=== PATIENT | female | born 1965 | race Caucasian/White ===

== ENCOUNTER → 2016-10-28 | Outpatient (CLI) | payer BC ==
[~2016-10-28] MED LIST: HYDR-229 PO
--- NOTE | 2016-10-28 19:35 | Diagnostic Imaging Report ---
Transabdominal and transvaginal pelvic ultrasound. INDICATION: Pelvic pain. FINDINGS: The uterus is 7.8 x 5 x 4.5 cm in size. It is retroflexed. The myometrium is slightly heterogeneous. There is a myometrial fibroid along the right anterior aspect of the uterine body. It measures 1.4 x 1.1 x 1.1 cm. The endometrial stripe is 0.4 cm in thickness. The ovaries are not seen, possibly atrophic or obscured by bowel gas. IMPRESSION: Heterogeneous myometrium with a 1.4 cm anterior myometrial fibroid eccentric to the right side. Dictated by: Dictated on workstation # [id number]
== END ==
LOC: RAD 12:52
PROVIDERS: ATTEND Nurse Practitioner Family
DX: D25.9 Leiomyoma of uterus, unspecified (principal)
CPT/HCPCS: 76830; 76856

== ENCOUNTER 2016-10-31 16:24 | Emergency (ER) | payer BC ==
[~2016-10-31] VITALS: Ht 185.4 cm; Wt 72.6 kg
[2016-10-31 16:58] LABS: BILIRUBIN,URINE NEGATIVE (NEGATIVE); KETONES,URINE NEGATIVE (NEGATIVE); LEUKOCYTE ESTERASE ,URINE NEGATIVE (NEGATIVE); NITRITE,URINE NEGATIVE (NEGATIVE); PH,URINE 6.5 (5-9); PROTEIN,URINE NEGATIVE (NEGATIVE); UROBILINOGEN,URINE NORMAL (NORMAL)
[2016-10-31 17:10] LABS: SQUAMOUS EPITHELIAL CELL,UR 0-2 /HPF
[2016-10-31 17:20] LABS: BASOPHILS % (AUTO) 1 % (0-10); EOSINOPHILS # (AUTO) 0.1 10^3/uL (0.0-0.3); EOSINOPHILS % (AUTO) 2 % (0-10); LYMPHOCYTES # (AUTO) 2.4 X 10^3 (1.0-4.0); LYMPHOCYTES % (AUTO) 38 % (12-44); MEAN CORPUSCULAR HEMOGLOBIN 30 PG (25-34); MEAN CORPUSCULAR HGB CONC 33 G/DL (32-36); MEAN CORPUSCULAR VOLUME 90 FL (80-99); MEAN PLATELET VOLUME 11.4 FL (7.4-10.4); MONOCYTES # (AUTO) 0.5 X 10^3 (0.0-1.0); MONOCYTES % (AUTO) 8 % (0-12); NEUTROPHILS # (AUTO) 3.3 X 10^3 (1.8-7.8); NEUTROPHILS % (AUTO) 52 % (42-75); PLATELET COUNT 198 10^3/uL (130-400); RED BLOOD COUNT 4.55 10^6/uL (4.35-5.85); RED CELL DISTRIBUTION WIDTH 12.6 % (10.0-14.5); WHITE BLOOD COUNT 6.4 10^3/uL (4.3-11.0)
[2016-10-31 17:38] LABS: ALANINE AMINOTRANSFERASE 16 U/L (0-55); ANION GAP 10 MMOL/L (5-14); ASPARTATE AMINO TRANSFERASE 19 U/L (5-34); BILIRUBIN,TOTAL 0.6 MG/DL (0.1-1.0); BLOOD UREA NITROGEN 10 MG/DL (7-18); BUN/CREATININE RATIO 14; CALCIUM 9.1 MG/DL (8.5-10.1); CARBON DIOXIDE 21 MMOL/L (21-32); CHLORIDE 105 MMOL/L (98-107); CREATININE SERUM 0.71 MG/DL (0.60-1.30); GFR ESTIMATED > 60; GLUCOSE 82 MG/DL (70-105); POTASSIUM 3.7 MMOL/L (3.6-5.0); SODIUM 136 MMOL/L (135-145); hs C REACTIVE PROTEIN 0.09 MG/DL (0.00-0.50)
--- NOTE | 2016-10-31 17:42 | ED GU-Female ---
General Chief Complaint: Abdominal/GI Problems Stated Complaint: ABD/PELVIC PAIN Nursing Triage Note: PT STATES LOWER ABD/PELVIC PAIN FOR ALMOST 3 WEEKS. STATES SHE HAS BEEN SEEN AT DR MAGUIRE OFFICE FOR THIS PAIN, HAD AN US DONE AND IS UNSURE OF WHAT IS CAUSING HER PAIN. Nursing Sepsis Screen: No Definite Risk Source: patient Exam Limitations: no limitations History of Present Illness Time seen by provider: 17:14 Initial Comments 51 yo female patient presents to the ED for c/o lower abdominal pain/pelvic pain for approximately 3 weeks. Patient was seen by Dr. Vega's office with an ultrasound performed. States ultrasound was negative. Patient states pelvic exam and cultures were done in Dr. Vega's office and were negative. Timing/Duration: intermittent, other (3 wks) Severity/Quality: aching, cramping Location: RLQ, LLQ, suprapubic Radiation: back Activities at Onset: none Prior Genitourinary Problems: none Allergies and Home Medications Allergies Coded Allergies: No Known Drug Allergies (Unverified , 12/04/10) Home Medications Cyclobenzaprine HCl 10 Mg Tablet, 10 MG PO Q8H PRN for SPASMS, #14 Ref 0 Prescribed by: YAKELIN PACK on 10/31/16 190 Hydrocodone Bit/Acetaminophen 1 Each Tablet, 1-2 EACH PO Q6HR PRN, #30 Ref 0 Prescribed by: SHELBY OSHEA on 12/04/10 0704 Prednisone 20 Mg Tab, 40 MG PO DAILY, #10 Ref 0 Prescribed by: YAKELIN PACK on 10/31/16 190 Tramadol HCl 50 Mg Tablet, 50 MG PO Q4H PRN for pain, #14 Ref 0 Prescribed by: YAKELIN PACK on 10/31/161899 Constitutional: No chills, No fever, No malaise Respiratory: No cough, No short of breath Cardiovascular: No chest pain, No palpitations, No syncope Gastrointestinal: see HPI, abdominal pain, No constipation, No diarrhea, No melena, No nausea, No vomiting Genitourinary: see HPI, denies burning, denies discharge, denies dysuria, denies frequency, denies flank pain, denies hematuria, pain Musculoskeletal: back pain Skin: no symptoms reported Psychiatric/Neurological: Denies Numbness, Denies Paresthesia, Denies Tingling , Denies Weakness All Other Systemes Reviewed Negative Unless Noted: Yes (Negative excepted noted.) Past Rourdda-Urnzsc-Gedx[facility] Hx Patient Social History Alcohol Use: Denies Use Recreational Drug Use: No Smoking Status: Never a Smoker Recent Foreign Travel: No Contact w/Someone Who Travel: No Recent Infectious Disease Expo: No Recent Hopitalizations: No Seasonal Allergies Seasonal Allergies: No Surgeries HX Surgeries: Yes Surgeries: Section Respiratory Hx Respiratory Disorders: No Cardiovascular Hx Cardiac Disorders: No Neurological Hx Neurological Disorders: No Genitourinary Hx Genitourinary Disorders: No Gastrointestinal Hx Gastrointestinal Disorders: No Musculoskeletal Hx Musculoskeletal Disorders: No Reviewed Nursing Assessment Reviewed/Agree w Nursing PMH: Yes Family Medical History Significant Family History: No Pertinent Family Hx Physical Exam Vital Signs Vital Sign - Last 12Hours 10/31/16 10/31/16 16:54 19:08 Temp 98.4 Pulse 76 Resp 18 B/P (MAP) 145/91 Pulse Ox 99 Capillary Refill : Less Than 3 Seconds General Appearance: WD/WN, no apparent distress Cardiovascular: regular rate, rhythm, no murmur Respiratory: lungs clear, normal breath sounds, no respiratory distress Gastrointestinal: normal bowel sounds, soft, no organomegaly Back: normal inspection, no CVA tenderness, no vertebral tenderness, other ( bilateral paraspinous muscles of the low back is ttp) Extremities: no pedal edema, normal capillary refill Neurologic/Psychiatric: alert, normal mood/affect, oriented x 3 Skin: normal color, warm/dry Progress/Results/Core Measures Results/Orders Lab Results Laboratory Tests Test 10/31/16 16:50 10/31/16 17:13 Range/Units Urine Color YELLOW Urine Clarity CLEAR Urine pH 6.5 5-9 Urine Specific Carman 1.005 L 1.016-1.022 Urine Protein NEGATIVE NEGATIVE Urine Glucose (UA) NEGATIVE NEGATIVE Urine Ketones NEGATIVE NEGATIVE Urine Nitrite NEGATIVE NEGATIVE Urine Bilirubin NEGATIVE NEGATIVE Urine Urobilinogen NORMAL NORMAL MG/DL Urine Leukocyte Esterase NEGATIVE NEGATIVE Urine RBC (Auto) NEGATIVE NEGATIVE Urine RBC NONE /HPF Urine WBC NONE /HPF Urine Squamous Epithelial Cells 0-2 /HPF Urine Crystals NONE /LPF Urine Bacteria NEGATIVE /HPF Urine Casts NONE /LPF Urine Mucus NEGATIVE /LPF Urine Culture Indicated NO White Blood Count 6.4 4.3-11.0 10^3/uL Red Blood Count 4.55 4.35-5.85 10^6/uL Hemoglobin 13.5 11.5-16.0 G/DL Hematocrit 41 35-52 % Mean Corpuscular Volume 90 80-99 FL Mean Corpuscular Hemoglobin 30 25-34 PG Mean Corpuscular Hemoglobin Concent 33 32-36 G/DL Red Cell Distribution Width 12.6 10.0-14.5 % Platelet Count 198 130-400 10^3/uL Mean Platelet Volume 11.4 H 7.4-10.4 FL Neutrophils (%) (Auto) 52 42-75 % Lymphocytes (%) (Auto) 38 12-44 % Monocytes (%) (Auto) 8 0-12 % Eosinophils (%) (Auto) 2 0-10 % Basophils (%) (Auto) 1 0-10 % Neutrophils # (Auto) 3.3 1.8-7.8 X 10^3 Lymphocytes # (Auto) 2.4 1.0-4.0 X 10^3 Monocytes # (Auto) 0.5 0.0-1.0 X 10^3 Eosinophils # (Auto) 0.1 0.0-0.3 10^3/uL Basophils # (Auto) 0.0 0.0-0.1 10^3/uL Sodium Level 136 135-145 MMOL/L Potassium Level 3.7 3.6-5.0 MMOL/L Chloride Level 105 98-107 MMOL/L Carbon Dioxide Level 21 21-32 MMOL/L Anion Gap 10 5-14 MMOL/L Blood Urea Nitrogen 10 7-18 MG/DL Creatinine 0.71 0.60-1.30 MG/DL Estimat Glomerular Filtration Rate > 60 BUN/Creatinine Ratio 14 Glucose Level 82 70-105 MG/DL Calcium Level 9.1 8.5-10.1 MG/DL Total Bilirubin 0.6 0.1-1.0 MG/DL Aspartate Amino Transf (AST/SGOT) 19 5-34 U/L Alanine Aminotransferase (ALT/SGPT) 16 0-55 U/L Alkaline Phosphatase 68 40-136 U/L C-Reactive Protein High Sensitivity 0.09 0.00-0.50 MG/DL Total Protein 7.0 6.4-8.2 GM/DL Albumin 4.0 3.2-4.5 GM/DL My Orders Orders - YAKELIN PACK Ua Culture If Indicated (10/31/16 16:42) Saline Lock/Iv-Start (10/31/16 16:59) Cbc With Automated Diff (10/31/16 16:59) Comprehensive Metabolic Panel (10/31/16 16:59) Hs C Reactive Protein (10/31/16 16:59) Ct Abdomen/Pelvis W Wo (10/31/16 17:30) Iohexol Injection (Omnipaque 350 Mg/Ml 1 (10/31/16 17:45) Ns (Ivpb) (Sodium Chloride 0.9% Ivpb Bag (10/31/16 17:45) Rx-Tramadol Hcl (Rx-Ultram) (10/31/16 19:04) Medications Given in ED Current Medications Medications Dose Ordered Sig/Suzanna Route Start Time Stop Time Status Last Admin Dose Admin Iohexol 100 ml ONCE ONCE IV 10/31/16 17:45 10/31/16 19:10 DC 10/31/16 17:43 100 ML Sodium Chloride 100 ml ONCE ONCE IV 10/31/16 17:45 10/31/16 19:10 DC 10/31/16 17:43 80 ML Vital Signs/I&O Vital Sign - Last 12Hours 10/31/16 10/31/16 16:54 19:08 Temp 98.4 98.4 Pulse 76 76 Resp 18 18 B/P (MAP) 145/91 Pulse Ox 99 Blood Pressure Mean: 109 Diagnostic Imaging Diagonstic Imaging: CT Plain Films/CT/US/NM/MRI: abdomen, pelvis Comments FINDINGS: The visualized lung bases are clear. The liver, spleen, adrenal glands and pancreas are unremarkable. The bilateral kidneys are unremarkable. Minimal bilateral hydroureter, though no obstructing lesion is identified. No aneurysmal dilatation of abdominal aorta. The urinary bladder is unremarkable. The uterus is again noted to be heterogeneous with a central rounded region noted, which does not appear significantly changed since 2010. The adnexal regions are unremarkable. The appendix is unremarkable. No evidence of bowel obstruction or pneumatosis. No significant adenopathy, free air or free air within the abdomen or pelvis. No acute osseous abnormality. IMPRESSION: 1. Mild bilateral hydroureter without hydronephrosis. There is, however, no obstructing mass or calculus identified. 2. Similar heterogeneous appearance of the uterus with associated round hypodensity, likely related to a fibroid. Not significantly changed since 2010. 3. Additional findings as above. Dictated on workstation # [id number] Reviewed: Reviewed by Me (radiology report reviewed by me) Departure Communication Progress Notes All laboratory and diagnostic findings discussed with the patient. Patient now states she has an appointment with Fransisco acosta APRN on Tuesday for further evaluation. Plan for discharge to home. Patient instructed to follow-up with Dr. Vega's office for recheck and to proceed with appointment at Fransisco acosta's office on Tuesday. Impression Impression: Primary Impression: Abdominal pain Qualified Codes: R10.30 - Lower abdominal pain, unspecified Additional Impressions: Uterine fibroid Qualified Codes: D25.9 - Leiomyoma of uterus, unspecified Strain of muscle, fascia and tendon of lower back, initial encounter Disposition: HOME, SELF-CARE Condition: Improved Departure-Patient Inst. Decision time for Depature: 18:45 Referrals: FERN VEGA DO (PCP/Family) Primary Care Physician FRANSISCO ACOSTA Patient Instructions: Uterine Fibroids (DC), Acute Abdomen (Belly Pain), Adult (DC) Add. Discharge Instructions: All discharge instructions reviewed with patient and/or family. Voiced understanding. Tylenol extra strength [id number] as directed for pain. Ibuprofen 800 mg by mouth every 8 hours as needed for pain. Follow-up with Dr. Vega as an outpatient for recheck. Follow-up with Fransisco Acosta APRN as an outpatient Tuesday as previously scheduled. Call for appointment time Tuesday. Return to the emergency department for worsened pain, fever, difficulty with urination, inability to urinate, abdominal swelling, or any other concerns. Scripts Cyclobenzaprine HCl (Cyclobenzaprine HCl) 10 Mg Tablet 10 MG PO Q8H Y for SPASMS, #14 TAB 0 Refills Prov: YAKELIN PACK 10/31/16 Prednisone (Prednisone) 20 Mg Tab 40 MG PO DAILY, #10 TAB 0 Refills Prov: YAKELIN PACK 10/31/16 Tramadol HCl (Tramadol HCl) 50 Mg Tablet 50 MG PO Q4H Y for pain, #14 TAB 0 Refills Prov: YAKELIN PACK 10/31/16 Copy Copies To 1: FERN VEGA DO Copies To 2: FRANSISCO ACOSTA GRETCHEN L PA Oct 31, 2016 17:42
[2016-10-31] MEDS ORDERED: IOHEXOL 350 MG/ML 100 ML (OMNIPAQUE 350) VIAL IV ONE (17:45)
[2016-10-31] MEDS ORDERED: NS 100 ML (IVPB) BAG IV ONE (17:45)
--- NOTE | 2016-10-31 18:30 | Diagnostic Imaging Report ---
PROCEDURE: CT abdomen and pelvis with and without contrast. TECHNIQUE: Precontrast acquisitions were acquired through the abdomen and pelvis. Multiple contiguous axial images were obtained through the abdomen and pelvis after the administration of intravenous contrast. INDICATION: Pain. COMPARISON: December 04, 2010. FINDINGS: The visualized lung bases are clear. The liver, spleen, adrenal glands and pancreas are unremarkable. The bilateral kidneys are unremarkable. Minimal bilateral hydroureter, though no obstructing lesion is identified. No aneurysmal dilatation of abdominal aorta. The urinary bladder is unremarkable. The uterus is again noted to be heterogeneous with a central rounded region noted, which does not appear significantly changed since 2010. The adnexal regions are unremarkable. The appendix is unremarkable. No evidence of bowel obstruction or pneumatosis. No significant adenopathy, free air or free air within the abdomen or pelvis. No acute osseous abnormality. IMPRESSION: 1. Mild bilateral hydroureter without hydronephrosis. There is, however, no obstructing mass or calculus identified. 2. Similar heterogeneous appearance of the uterus with associated round hypodensity, likely related to a fibroid. Not significantly changed since 2010. 3. Additional findings as above. Dictated by: Dictated on workstation # [id number]
[2016-10-31] MEDS ORDERED: TRAM50TA2 PO (19:00)
[2016-10-31] MEDS ORDERED: CYCL10TA9 PO (19:00)
[2016-10-31] MEDS ORDERED: PRD20T PO (19:00)
[2016-10-31] MEDS ORDERED: RX-TRAMADOL 50 MG (ULTRAM) TAB PPK#4 PO STA (19:04)
[2016-10-31 19:08] VITALS: BP 145/91
--- OUTSIDE RECORDS SUMMARY | 2016-11-02 12:09 | XMS REPORT | Continuity of Care Document ---
Author Author [facility] Organization [facility] Address Unknown Phone Unavailable Allergies Active Description Code Type Severity Reaction Onset Reported/Identified Relationship to Patient Clinical Status Yes No Known Drug Allergies [id number] Drug Allergy Unknown N/ A 12/04/2010 Medications Problems Date Dx Coded Attending Type Code Diagnosis Diagnosed By 03/27/2014 Ot 719.41 03/27/2014 Ot 782.3 03/27/2014 FRANSISCO FLORES Ot V76.12 04/15/2014 DYLLAN NICOLE DO Ot V76.12 03/28/2015 DYLLAN NICLOE DO Ot Z12.31 10/22/2015 Ot 719.41 JOINT PAIN-SHLDER 10/22/2015 Ot 782.3 EDEMA 10/22/2015 FRANSISCO FLORESP Ot V76.12 OTH SCREEN MAMMO-MALIGN NEOPLASM OF [place] 10/22/2015 DYLLAN NICOLE DO Ot V76.12 OTH SCREEN MAMMO-MALIGN NEOPLASM OF [place] 10/22/2015 DYLLAN NICOLE DO Ot Z12.31 ENCNTR SCREEN MAMMOGRAM FOR MALIGNANT NE 10/23/2015 LEENA ANDERSON MILITARY COOK Ot R76.11 NONSPECIFIC REACTION TO SKIN TEST W/O AC 03/15/2016 Ot 719.41 JOINT PAIN-SHLDER 03/15/2016 Ot 782.3 EDEMA 03/15/2016 FRANSISCO FLORES CRUSHER FEEDER Ot V76.12 OTH SCREEN MAMMO-MALIGN NEOPLASM OF [place] 03/15/2016 DYLLAN NICOLE DO Ot V76.12 OTH SCREEN MAMMO-MALIGN NEOPLASM OF [place] 03/15/2016 DYLLAN NICOLE DO Ot Z12.31 ENCNTR SCREEN MAMMOGRAM FOR MALIGNANT NE 03/15/2016 LEENA ANDERSON MILITARY COOK Ot R76.11 NONSPECIFIC REACTION TO SKIN TEST W/O AC 03/26/2016 DYLLAN NICOLE DO Ot Z12.31 ENCNTR SCREEN MAMMOGRAM FOR MALIGNANT NE 10/25/2016 Ot 719.41 JOINT PAIN-SHLDER 10/25/2016 Ot 782.3 EDEMA 10/25/2016 FRANSISCO FLORES Ot V76.12 OTH SCREEN MAMMO-MALIGN NEOPLASM OF [place] 10/25/2016 NICOLE DO, DYLLAN C Ot V76.12 OTH SCREEN MAMMO-MALIGN NEOPLASM OF [place] 10/25/2016 NICOLE DO, DYLLAN C Ot Z12.31 ENCNTR SCREEN MAMMOGRAM FOR MALIGNANT NE 10/25/2016 LEENA ANDERSON APRN Ot R76.11 NONSPECIFIC REACTION TO SKIN TEST W/O AC 10/25/2016 NICOLE DO, DYLLAN C Ot Z12.31 ENCNTR SCREEN MAMMOGRAM FOR MALIGNANT NE 10/25/2016 Ot 719.41 JOINT PAIN-SHLDER 10/25/2016 Ot 782.3 EDEMA 10/25/2016 FRANSISCO FLORES CRUSHER FEEDER Ot V76.12 OTH SCREEN MAMMO-MALIGN NEOPLASM OF [place] 10/25/2016 NICOLE DO, DYLLAN C Ot V76.12 OTH SCREEN MAMMO-MALIGN NEOPLASM OF [place] 10/25/2016 NICOLE DO, DYLLAN C Ot Z12.31 ENCNTR SCREEN MAMMOGRAM FOR MALIGNANT NE 10/25/2016 LEENA ANDERSON MILITARY COOK Ot R76.11 NONSPECIFIC REACTION TO SKIN TEST W/O AC 10/25/2016 NICOLE DO, DYLLAN C Ot Z12.31 ENCNTR SCREEN MAMMOGRAM FOR MALIGNANT NE Procedures Results Encounters ACCT No. Visit Date/Time Discharge Status Pt. Type Provider Facility Loc./Unit Complaint [id number] 03/14/2015 14:11:00 2014 23:59:59 CLS Outpatient DYLLAN NICOLE DO C [facility] RAD SCREENING [id number] 03/28/2014 13:35:00 2013 23:59:59 CLS Outpatient DYLLAN NICOLE DO [facility] RAD SCREENING [id number] 02/23/2013 13:33:00 2012 23:59:59 CLS Outpatient FRANSISCO FLORES [facility] RAD SCREENING [id number] 10/28/2016 12:52:00 ACT Outpatient EDILIA MORRIS [facility] RAD PELVIC PAIN [id number] 03/15/2016 14:54:00 ACT Outpatient DYLLAN NICOLE DO [facility] RAD SCREENING [id number] 10/22/2015 13:51:00 ACT Outpatient LEENA ANDERSON APRN [facility] RAD POSITIVE TB SKIN TEST [id number] 03/27/2014 10:08:00 Document Registration [id number] 03/27/2014 10:08:00 Document Registration [id number] 02/11/2012 14:16:00 Document Registration
== END 2016-10-31 19:09 | disposition home or self-care (01) ==
LOC: EDUNIT# 16:24 → ER 16:26
DX: X58.XXXA Exposure to other specified factors, initial encounter; S39.012A Strain of muscle, fascia and tendon of lower back, initial encounter; D25.9 Leiomyoma of uterus, unspecified; Z87.59 Personal history of other complications of pregnancy, childbirth and the puerperium
CPT/HCPCS: 36415; 74178; 80053; 81000; 85025; 86141

== ENCOUNTER → 2017-03-21 | Outpatient (CLI) | payer BC ==
[~2017-03-21] MED LIST changes: +CYCL10TA9 PO; +PRD20T PO; +TRAM50TA2 PO
--- NOTE | 2017-03-22 21:47 | Diagnostic Imaging Report ---
Bilateral screening mammogram 2D views with tomosynthesis The current study was also evaluated with a Computer Aided Detection (CAD) system. Indication: Screening. No current complaints stated on the questionnaire. COMPARISON: 03/15/2016 FINDINGS: The breasts are composed of heterogeneously dense parenchyma which may decrease mammographic sensitivity. There is no mass, architectural distortion or suspicious cluster of calcification. Allowing for technique and positional differences, no suspicious change is seen. IMPRESSION: Dense breasts with no definite change. ACR BI-RADS Category 2: Benign findings. Result letter will be mailed to the patient. Note: At least 10% of breast cancer is not imaged by mammography. Dictated by: Dictated on workstation # [id number]
== END ==
LOC: RAD 10:03
PROVIDERS: ATTEND Obstetrics & Gynecology
DX: Z12.31 Encounter for screening mammogram for malignant neoplasm of breast (principal)
CPT/HCPCS: 77067

== ENCOUNTER → 2018-03-23 | Outpatient (CLI) | payer BC ==
--- NOTE | 2018-03-23 12:21 | Diagnostic Imaging Report ---
Indication: Routine screening. Comparison is made to prior mammogram from 03/21/2017 and 03/15/2016. 2-D and 3-D bilateral screening mammography was performed with CAD. Both breasts remain heterogeneously dense, limiting the sensitivity of mammography. The parenchymal pattern is stable. No mass or malignant-appearing microcalcifications are seen. There are benign calcifications. Axillae are unremarkable. Impression: BI-RADS category 2. No mammographic features suspicious for malignancy are identified. ACR BI-RADS Category 2: Benign findings. Result letter will be mailed to the patient. Note: At least 10% of breast cancer is not imaged by mammography. Dictated by: Dictated on workstation # [id number]
== END ==
LOC: RAD 10:04
PROVIDERS: ATTEND Obstetrics & Gynecology
DX: Z12.31 Encounter for screening mammogram for malignant neoplasm of breast (principal)
CPT/HCPCS: 77067

== ENCOUNTER → 2020-03-18 | Outpatient (CLI) | payer BC, OTHER ==
[~2020-03-18] MED LIST changes: -TRAM50TA2 PO; +TRM50T PO
--- NOTE | 2020-03-18 14:30 | Diagnostic Imaging Report ---
INDICATION: Screening. TECHNIQUE: The current study was also evaluated with a Computer Aided Detection (CAD) system. 3-D Tomographic imaging was also performed. COMPARISON: 03/23/2018, 03/21/2017, and 03/15/2016. FINDINGS: The fibroglandular tissue is heterogeneously dense bilaterally. There is no dominant mass, spiculated lesion, or suspicious calcification identified. Benign-type calcification in the left breast. The skin, nipples, and axillae are unremarkable. IMPRESSION: Benign findings as above. ACR BI-RADS Category 2: Benign findings. Result letter will be mailed to the patient. Note: At least 10% of breast cancer is not imaged by mammography. Dictated by: Dictated on workstation # [id number]
== END ==
LOC: RAD 10:46
PROVIDERS: ATTEND Obstetrics & Gynecology
DX: Z12.31 Encounter for screening mammogram for malignant neoplasm of breast (principal); R92.1 Mammographic calcification found on diagnostic imaging of breast
CPT/HCPCS: 77063; 77067

== ENCOUNTER 2021-01-25 08:25 | Emergency (ER) | payer OTHER ==
[~2021-01-25] VITALS: Ht 170.1 cm; Wt 64.8 kg
[2021-01-25] MEDS ORDERED: fentaNYL INJ 100 MCG/2 ML AMP ONE (08:38)
[2021-01-25 08:45] LABS: BASOPHILS # (AUTO) 0.1 10^3/uL (0.0-0.1); BASOPHILS % (AUTO) 1 % (0-10); EOSINOPHILS # (AUTO) 0.1 10^3/uL (0.0-0.3); EOSINOPHILS % (AUTO) 2 % (0-10); HEMATOCRIT 42 % (35-52); HEMOGLOBIN 13.7 g/dL (11.5-16.0); LYMPHOCYTES # (AUTO) 3.1 10^3/uL (1.0-4.0); LYMPHOCYTES % (AUTO) 46 % (12-44); MEAN CORPUSCULAR HEMOGLOBIN 31 pg (25-34); MEAN CORPUSCULAR HGB CONC 33 g/dL (32-36); MEAN CORPUSCULAR VOLUME 93 fL (80-99); MEAN PLATELET VOLUME 11.4 fL (9.0-12.2); MONOCYTES # (AUTO) 0.5 10^3/uL (0.0-1.0); MONOCYTES % (AUTO) 8 % (0-12); NEUTROPHILS # (AUTO) 2.9 10^3/uL (1.8-7.8); NEUTROPHILS % (AUTO) 42 % (42-75); PLATELET COUNT 231 10^3/uL (130-400); WHITE BLOOD COUNT 6.8 10^3/uL (4.3-11.0)
[2021-01-25] MEDS ORDERED: fentaNYL INJ 100 MCG/2 ML AMP IVP ONE ×2 (08:45→11:00)
--- NOTE | 2021-01-25 08:45 | ED Fall/Injury ---
General Chief Complaint: Upper Extremity Stated Complaint: LEFT ARM BROKEN Source: patient Exam Limitations: no limitations History of Present Illness Date Seen by Provider: Jan 25, 2021 Time Seen by Provider: 08:28 Initial Comments Patient reports the ER by private conveyance from [facility] [place] [place] where she was working and states she was pushing a wheelchair and slipped on some water. She landed on outstretched left arm on her left side and when she felt a snap in her left wrist she retched backwards striking the back of her head against the floor. She is also having some pain in her low back/right sacral area. She says she has broke her left wrist in the past. She does not have any medical allergies and follows with Dr. Vega. She denies being on blood thinners. She is very anxious and difficult to get a history from. She does not however have a history of surgery to her left wrist. Allergies and Home Medications Allergies Coded Allergies: No Known Drug Allergies (Unverified , 12/04/10) Patient Home Medication List Home Medication List Reviewed: Yes Cephalexin (Cephalexin) 500 Mg Tablet, 500 MG PO TID Prescribed by: BRUNO DESAI on 01/25/21 111 Cyclobenzaprine HCl (Cyclobenzaprine HCl) 10 Mg Tablet, 10 MG PO Q8H PRN for SPASMS Prescribed by: YAKELIN PACK on 10/31/161899 Hydrocodone Bit/Acetaminophen (Lortab 10-500 Tablet) 1 Each Tablet, 1-2 EACH PO Q6HR PRN Prescribed by: SHELBY OSHEA on 12/04/10 0704 Hydrocodone/Acetaminophen (Hydrocodone-Acetamin 5-325 mg) 1 Each Tablet, 1-2 TAB PO Q6H PRN for PAIN-MODERATE (5-7) Prescribed by: BRUNO DESAI on 01/25/21 111 Prednisone (Prednisone) 20 Mg Tab, 40 MG PO DAILY Prescribed by: YAKELIN PACK on 10/31/161899 Tramadol HCl (Tramadol HCl) 50 Mg Tablet, 50 MG PO Q4H PRN for pain Prescribed by: YAKELIN PACK on 10/31/161899 Review of Systems Review of Systems Constitutional: No chills, No diaphoresis Eyes: Denies Blindness, Denies Drainage Ears, Nose, Mouth, Throat: denies ear pain, denies ear discharge Respiratory: No cough, No phlegm Cardiovascular: No chest pain, No palpitations Gastrointestinal: No abdominal pain, No nausea Genitourinary: No discharge, No dysuria Musculoskeletal: see HPI, back pain, joint pain All Other Systems Reviewed Negative Unless Noted: Yes Past Wofkqdt-Stcsdj-Ocdrsn Hx Patient Social History Tobacco Use?: No Use of E-Cig and/or Vaping dev: No Substance use?: No Seasonal Allergies Seasonal Allergies: No Past Medical History Surgeries: No Section Respiratory: No Cardiac: No Neurological: No Genitourinary: No Gastrointestinal: No Musculoskeletal: No Endocrine: No HEENT: No Cancer: No Psychosocial: No Integumentary: No Blood Disorders: No Family Medical History No Pertinent Family Hx Physical Exam Vital Signs Vital Signs - First Documented 01/25/21 08:34 Temp 36.1 Pulse 107 Resp 18 B/P (MAP) 201/102 (135) Pulse Ox 100 Capillary Refill : Height, Weight, BMI Height: 6'1.00" Weight: 160lbs. oz. 72.578916hw; BMI Method:Stated General Appearance: WD/WN, no apparent distress HEENT: normal ENT inspection, pharynx normal Neck: full range of motion, normal inspection Cardiovascular: normal peripheral pulses, regular rate, rhythm Respiratory: lungs clear, normal breath sounds, no respiratory distress, no accessory muscle use Peripheral Pulses: 2+ Radial Pulses (R), 2+ Radial Pulses (L) Gastrointestinal: normal bowel sounds, non tender, soft, no organomegaly Back: normal inspection, vertebral tenderness (Lumbar midline and right paraspinous muscle tenderness over the sacroiliac joint tender to palpation. No deformity.) Extremities: normal capillary refill, swelling (Left wrist with deformity and puncture wound hemostatic) Neurologic/Psychiatric: alert, oriented x 3, other (Very anxious, hyperventilating) Skin: normal color, warm/dry [place] Coma Score Best Eye Response: (4) Open Spontaneously Best Verbal Response: (5) Oriented Best Motor Response: (6) Obeys Commands [place] Total: 15 Procedures/Interventions Splinting and Joint Reduction : Location: Left wrist Pre-Proc Neuro Vasc Exam: normal Post-Proc Neuro Vasc Exam: unchanged from pre-exam Manny wrap: Yes Arm Sling: Large Hand-Made Type: fiberglass (Short arm splint) Splint Application: Short Arm Progress/Results/Core Measures Results/Orders Lab Results Laboratory Tests Test 01/25/21 08:36 Range/Units White Blood Count 6.8 4.3-11.0 10^3/uL Red Blood Count 4.49 3.80-5.11 10^6/uL Hemoglobin 13.7 11.5-16.0 g/dL Hematocrit 42 35-52 % Mean Corpuscular Volume 93 80-99 fL Mean Corpuscular Hemoglobin 31 25-34 pg Mean Corpuscular Hemoglobin Concent 33 32-36 g/dL Red Cell Distribution Width 12.7 10.0-14.5 % Platelet Count 231 130-400 10^3/uL Mean Platelet Volume 11.4 9.0-12.2 fL Immature Granulocyte % (Auto) 2 % Neutrophils (%) (Auto) 42 42-75 % Lymphocytes (%) (Auto) 46 H 12-44 % Monocytes (%) (Auto) 8 0-12 % Eosinophils (%) (Auto) 2 0-10 % Basophils (%) (Auto) 1 0-10 % Neutrophils # (Auto) 2.9 1.8-7.8 10^3/uL Lymphocytes # (Auto) 3.1 1.0-4.0 10^3/uL Monocytes # (Auto) 0.5 0.0-1.0 10^3/uL Eosinophils # (Auto) 0.1 0.0-0.3 10^3/uL Basophils # (Auto) 0.1 0.0-0.1 10^3/uL Immature Granulocyte # (Auto) 0.1 0.0-0.1 10^3/uL Sodium Level 137 135-145 MMOL/L Potassium Level 3.8 3.6-5.0 MMOL/L Chloride Level 105 98-107 MMOL/L Carbon Dioxide Level 21 21-32 MMOL/L Anion Gap 11 5-14 MMOL/L Blood Urea Nitrogen 12 7-18 MG/DL Creatinine 0.80 0.60-1.30 MG/DL Estimat Glomerular Filtration Rate 74 BUN/Creatinine Ratio 15 Glucose Level 121 H 70-105 MG/DL Calcium Level 9.8 8.5-10.1 MG/DL Corrected Calcium 9.7 8.5-10.1 MG/DL Total Bilirubin 0.6 0.1-1.0 MG/DL Aspartate Amino Transf (AST/SGOT) 24 5-34 U/L Alanine Aminotransferase (ALT/SGPT) 28 0-55 U/L Alkaline Phosphatase 80 40-136 U/L Total Protein 7.3 6.4-8.2 GM/DL Albumin 4.1 3.2-4.5 GM/DL My Orders Orders - BRUNO DESAI Wrist, Left, 3 Views Or More (01/25/21 08:35) Sacrum And Coccyx (01/25/21 08:35) Lumbar Spine - 2-3 Views (01/25/21 08:35) Ct Head/Cervical Spine Wo (01/25/21 08:35) Ed Iv/Invasive Line Start (01/25/21 08:35) Fentanyl Inj (Sublimaze Injection) (01/25/21 08:45) Cbc With Automated Diff (01/25/21 08:35) Comprehensive Metabolic Panel (01/25/21 08:35) Fentanyl Inj (Sublimaze Injection) (01/25/21 08:38) Fentanyl Inj (Sublimaze Injection) (01/25/21 11:00) Medications Given in ED Current Medications Medications Dose Ordered Sig/Suzanna Route Start Time Stop Time Status Last Admin Dose Admin Fentanyl Citrate 50 mcg ONCE ONCE IVP 01/25/21 08:45 01/25/21 08:46 DC 01/25/21 08:50 50 MCG Fentanyl Citrate 50 mcg ONCE ONCE IVP 01/25/21 11:00 01/25/21 11:01 DC 01/25/21 10:57 50 MCG Vital Signs/I&O 01/25/21 08:34 Temp 36.1 Pulse 107 Resp 18 B/P (MAP) 201/102 (135) Pulse Ox 100 Progress Progress Note : Time: 08:46 Progress Note Ice, fentanyl, and plain films of the back and left wrist. CT head and C-spine. Diagnostic Imaging Diagonstic Imaging: Xray Plain Films/CT/US/NM/MRI: forearm Comments [facility], [place] NAME: SHELTON PEREZ MED REC#: [id number] PT STATUS: REG ER : 1965 PHYSICIAN: BRUNO DESIA MD ADMIT DATE: 01/25/21/ER Draft Date of Exam:01/25/21 WRIST, LEFT, 3 VIEWS OR MORE INDICATION: Wrist pain COMPARISON: None available. TECHNIQUE: 3 radiographs of the left wrist dated 01/25/2021. FINDINGS: Acute comminuted distal radial and ulnar fractures are identified. Fractures demonstrate intra-articular extension to the radiocarpal joint and the distal radioulnar joint. Fractures are significantly comminuted. Some fracture fragments are slightly laterally displaced involving the distal radius. The ulnar styloid is slightly distracted. No significant tilt to the articular surface of the radius. Lucency is noted overlying the mid scaphoid on the oblique radiograph, though this lucency appears to extend beyond the scaphoid bone and into the adjacent soft tissues. Soft tissue swelling about the wrist. IMPRESSION: Acute significantly comminuted and minimally displaced fracturing involving the distal radius and ulna with intra-articular extension to the radiocarpal joint and distal radioulnar joint. Dictated on workstation # [id number] Dict: 01/25/21925 Trans: 01/25/2153 CV [id number] Interpreted by: AUBREE PULIDO MD Electronically signed by: Reviewed: Reviewed by Ks Diagonstic Imaging: Xray Plain Films/CT/US/NM/MRI: other (Lumbar spine and sacrum/coccyx) Comments [facility], [place] NAME: SHELTON PEREZ [facility] REC#: [id number] PT STATUS: REG ER : 1965 PHYSICIAN: BRUNO DESAI MD ADMIT DATE: 01/25/21/ER Draft Date of Exam:01/25/21 SACRUM AND COCCYX Indication: Fall with posterior pelvic pain. Comparison: None. Discussion: Three views of the sacrum were obtained. Mild degenerative disease noted within the sacroiliac joints. No displaced sacral fracture identified. Advanced degenerative disc disease at L5-S1. Soft tissues are unremarkable. Impression: 1. Negative sacrum. Dictated on workstation # [id number] Dict: 01/25/21930 Trans: 01/25/21 0949 CVB [id number] Interpreted by: LOLY CLARK MD Electronically signed by: [facility] [place] [place] NAME: SHELTON PEREZ [facility] REC#: [id number] PT STATUS: REG ER : 1965 PHYSICIAN: BRUNO DESAI MD ADMIT DATE: 01/25/21/ER Draft Date of Exam:01/25/21 LUMBAR SPINE - 2-3 VIEWS INDICATION: Lower back pain COMPARISON: Imaging from same date and from 10/31/2016. TECHNIQUE: 3 radiographs of the lumbar spine dated 01/25/2021. FINDINGS: 5 lumbar type vertebral bodies are present. Very minimal apex right curvature of the lumbar spine. The sacroiliac joints appear intact. No significant anterolisthesis or retrolisthesis. Besides mild endplate degenerative changes at L5/S1, vertebral body heights are otherwise well-maintained. Moderate disc space height loss at L5/S1. Scattered facet joint degenerative changes, greatest within the lower lumbar spine. No acute fracture or dislocation. No destructive osseous process. No suspicious radiopaque foreign body. IMPRESSION: No acute osseous abnormality with mild multilevel degenerative changes, by far greatest at L5/S1. Dictated on workstation # [id number] Dict: 01/25/21927 Trans: 01/25/21953 [facility] [id number] Interpreted by: AUBREE PULIDO MD Electronically signed by: Reviewed: Reviewed by Me Diagonstic Imaging: CT (Without IV contra) Plain Films/CT/US/NM/MRI: c-spine, head Comments [facility] [place] NAME: SHELTON PEREZ [facility] REC#: [id number] PT STATUS: REG ER : 1965 PHYSICIAN: BRUNO DESAI MD ADMIT DATE: 01/25/21/ER Signed Date of Exam:01/25/21 CT HEAD/CERVICAL SPINE WO PROCEDURE: CT head and CT cervical spine without contrast. TECHNIQUE: Multiple contiguous axial images were obtained through the brain and cervical spine without the use of intravenous contrast. Sagittal and coronal reformations through the cervical spine were then performed. Auto Exposure Controls were utilized during the CT exam to meet ALARA standards for radiation dose reduction. INDICATION: Fall, pain, trauma COMPARISON: None available FINDINGS: No intracranial hemorrhage. Focal hypodensities are identified within the left greater than right basal ganglia as well as within the left subinsular region. No midline shift, herniation, hydrocephalus, or extra-axial fluid collection. No acute large geographic ischemic infarction. The orbits are unremarkable. Postsurgical changes associated with the bilateral maxillary sinuses are partially visualized. The paranasal sinuses appear clear. The calvarium and extracalvarial soft tissues are unremarkable. Alignment of the cervical spine is well maintained. Alignment of the atlantooccipital joint is well maintained. Besides mild endplate degenerative changes, vertebral body heights are well maintained. Mild disc space height loss at C5/C6 and C6/C7. No acute fracture or dislocation. No destructive osseous process. No high-grade osseous central canal or neural foraminal stenosis. Mild scattered facet joint degenerative changes. No apical pneumothorax. Heterogeneous and nodular appearance of the thyroid gland is noted, right greater than left. Paraspinal soft tissues are otherwise unremarkable. IMPRESSION: Left greater than right small hypodensities within the bilateral basal ganglia. These are felt to relate to dilated perivascular spaces versus multiple small age-indeterminate lacunar infarctions. If further evaluation is desired, MRI of the brain would help to further evaluate. No acute traumatic abnormality within the cervical spine with mild degenerative changes. Nodular thyroid gland. Recommend a nonemergent ultrasound of the thyroid gland for further evaluation. Dictated by: Dictated on workstation # [id number] Dict: 01/25/21910 Trans: 01/25/21934 [facility] [id number] Interpreted by: UABREE PULIDO MD Electronically signed by: AUBREE PULIDO MD 01/25/21934 Reviewed: Reviewed by Me Consults : Consulting Physician: CECILIA FRITZ MD Consults Notes Discussed the case with orthopedic surgery and he recommends cleaning the wound thoroughly putting her on antibiotics and he would see her on Tuesday in the clinic. Departure Impression Primary Impression: Fall Qualified Codes: W19.XXXA - Unspecified fall, initial encounter Additional Impressions: Concussion Qualified Codes: S06.0X0A - Concussion without loss of consciousness, initial encounter Left wrist fracture Qualified Codes: S62.102A - Fracture of unspecified carpal bone, left wrist, initial encounter for closed fracture Thyroid nodule incidentally noted on imaging study Disposition: HOME, SELF-CARE Condition: Stable Departure-Patient Inst. Decision time for Depature: 11:15 Referrals: CECILIA FRITZ MD, JACQUELINE S DO (PCP/Family) Primary Care Physician Patient Instructions: Wrist Fracture (DC) Add. Discharge Instructions: Broken bones typically take about 6 weeks to heal. Begin to put you in a fiberglass splint today until the swelling goes down. Follow-up with Dr. Fritz on Tuesday by calling for an appointment Tuesday. Wear the sling except to bathe and sleep. Elevate your arm above the level of your heart to help reduce swelling. Hydrocodone 1 to 2 tablets every 6 hours as necessary for severe pain. You may use ibuprofen 800 mg every 8 hours. Ice 20 minutes on every 2 hours while awake for the next 2 to 3 days for swelling and pain. Cephalexin 1 tablet 3 times a day for the next 5 days to prevent infection. You had some incidentally noticed nodules in your thyroid that could be ultrasounded outpatient at your leisure to your primary care office. Call Dr. Vega to schedule this. All discharge instructions reviewed with patient and/or family. Voiced understanding. Scripts Hydrocodone/Acetaminophen (Hydrocodone-Acetamin 5-325 mg) 1 Each Tablet 1-2 TAB PO Q6H PRN for PAIN-MODERATE (5-7), #20 TAB 0 Refills Prov: BRUNO DESAI 01/25/21 Cephalexin (Cephalexin) 500 Mg Tablet 500 MG PO TID for 5 Days, #15 TAB 0 Refills Prov: BRUNO DESAI 01/25/21 Work/School Note: Work Release Form Date Seen in the Emergency Department: Jan 25, 2021 Return to Work: Jan 29, 2021 Restrictions: Need Release from Doctor Other Restrictions Listed Below: No use of left upper extremity until released by surgeon. Copy Copies To 1: CECILIA FRITZ MD; FERN VEGA TITUS J Jan 25, 2021 08:45
[2021-01-25 08:56] LABS: ALBUMIN 4.1 GM/DL (3.2-4.5); POTASSIUM 3.8 MMOL/L (3.6-5.0)
[2021-01-25 08:58] LABS: CALCIUM 9.8 MG/DL (8.5-10.1)
[2021-01-25 08:59] LABS: TOTAL PROTEIN 7.3 GM/DL (6.4-8.2)
[2021-01-25 09:01] LABS: BILIRUBIN,TOTAL 0.6 MG/DL (0.1-1.0)
[2021-01-25 09:02] LABS: CREATININE SERUM 0.8 MG/DL (0.60-1.30)
--- NOTE | 2021-01-25 09:24 | Diagnostic Imaging Report ---
PROCEDURE: CT head and CT cervical spine without contrast. TECHNIQUE: Multiple contiguous axial images were obtained through the brain and cervical spine without the use of intravenous contrast. Sagittal and coronal reformations through the cervical spine were then performed. Auto Exposure Controls were utilized during the CT exam to meet ALARA standards for radiation dose reduction. INDICATION: Fall, pain, trauma COMPARISON: None available FINDINGS: No intracranial hemorrhage. Focal hypodensities are identified within the left greater than right basal ganglia as well as within the left subinsular region. No midline shift, herniation, hydrocephalus, or extra-axial fluid collection. No acute large geographic ischemic infarction. The orbits are unremarkable. Postsurgical changes associated with the bilateral maxillary sinuses are partially visualized. The paranasal sinuses appear clear. The calvarium and extracalvarial soft tissues are unremarkable. Alignment of the cervical spine is well maintained. Alignment of the atlantooccipital joint is well maintained. Besides mild endplate degenerative changes, vertebral body heights are well maintained. Mild disc space height loss at C5/C6 and C6/C7. No acute fracture or dislocation. No destructive osseous process. No high-grade osseous central canal or neural foraminal stenosis. Mild scattered facet joint degenerative changes. No apical pneumothorax. Heterogeneous and nodular appearance of the thyroid gland is noted, right greater than left. Paraspinal soft tissues are otherwise unremarkable. IMPRESSION: Left greater than right small hypodensities within the bilateral basal ganglia. These are felt to relate to dilated perivascular spaces versus multiple small age-indeterminate lacunar infarctions. If further evaluation is desired, MRI of the brain would help to further evaluate. No acute traumatic abnormality within the cervical spine with mild degenerative changes. Nodular thyroid gland. Recommend a nonemergent ultrasound of the thyroid gland for further evaluation. Dictated by: Dictated on workstation # [id number]
--- NOTE | 2021-01-25 09:50 | Diagnostic Imaging Report ---
Indication: Fall with posterior pelvic pain. Comparison: None. Discussion: Three views of the sacrum were obtained. Mild degenerative disease noted within the sacroiliac joints. No displaced sacral fracture identified. Advanced degenerative disc disease at L5-S1. Soft tissues are unremarkable. Impression: 1. Negative sacrum. Dictated by: Dictated on workstation # [id number]
--- NOTE | 2021-01-25 09:54 | Diagnostic Imaging Report ---
INDICATION: Wrist pain COMPARISON: None available. TECHNIQUE: 3 radiographs of the left wrist dated 01/25/2021. FINDINGS: Acute comminuted distal radial and ulnar fractures are identified. Fractures demonstrate intra-articular extension to the radiocarpal joint and the distal radioulnar joint. Fractures are significantly comminuted. Some fracture fragments are slightly laterally displaced involving the distal radius. The ulnar styloid is slightly distracted. No significant tilt to the articular surface of the radius. Lucency is noted overlying the mid scaphoid on the oblique radiograph, though this lucency appears to extend beyond the scaphoid bone and into the adjacent soft tissues. Soft tissue swelling about the wrist. IMPRESSION: Acute significantly comminuted and minimally displaced fracturing involving the distal radius and ulna with intra-articular extension to the radiocarpal joint and distal radioulnar joint. Dictated by: Dictated on workstation # [id number]
--- NOTE | 2021-01-25 09:54 | Diagnostic Imaging Report ---
INDICATION: Lower back pain COMPARISON: Imaging from same date and from 10/31/2016. TECHNIQUE: 3 radiographs of the lumbar spine dated 01/25/2021. FINDINGS: 5 lumbar type vertebral bodies are present. Very minimal apex right curvature of the lumbar spine. The sacroiliac joints appear intact. No significant anterolisthesis or retrolisthesis. Besides mild endplate degenerative changes at L5/S1, vertebral body heights are otherwise well-maintained. Moderate disc space height loss at L5/S1. Scattered facet joint degenerative changes, greatest within the lower lumbar spine. No acute fracture or dislocation. No destructive osseous process. No suspicious radiopaque foreign body. IMPRESSION: No acute osseous abnormality with mild multilevel degenerative changes, by far greatest at L5/S1. Dictated by: Dictated on workstation # [id number]
[2021-01-25] MEDS ORDERED: ACHD5005 PO (11:16)
[2021-01-25] MEDS ORDERED: CEPH500T PO (11:16)
[2021-01-25] MEDS ORDERED: TETANUS,DIPTH,PERTUSS P/F (BOOSTRIX) 0.5 ML VIAL IM ONE (11:45)
[2021-01-25 12:00] VITALS: BP 117/73
== END 2021-01-25 11:55 | disposition home or self-care (01) ==
LOC: EDUNIT# 08:25 → ER 08:28
DX: S06.0X0A Concussion without loss of consciousness, initial encounter (principal); S52.572A Other intraarticular fracture of lower end of left radius, initial encounter for closed fracture; S52.692A Other fracture of lower end of left ulna, initial encounter for closed fracture; E04.1 Nontoxic single thyroid nodule; W01.198A Fall on same level from slipping, tripping and stumbling with subsequent striking against other object, initial encounter
CPT/HCPCS: 36415; 70450; 72100; 72125; 72220; 73110; 80053; 85025; 90471; 90715; 96374; 96376

== ENCOUNTER → 2021-01-27 | Outpatient (CLI) | payer OTHER ==
[~2021-01-27] MED LIST changes: +ACHD5005 PO; +CEPH500T PO; +IBUP100T9 PO
== END ==
LOC: ORTHO 13:48
PROVIDERS: ATTEND Orthopaedic Surgery
DX: S52.502A Unspecified fracture of the lower end of left radius, initial encounter for closed fracture (principal); X58.XXXA Exposure to other specified factors, initial encounter
CPT/HCPCS: 99203

== ENCOUNTER 2021-01-28 05:38 | Outpatient (CLI) | payer OTHER ==
[~2021-01-28] VITALS: Ht 175.3 cm; Wt 66.0 kg
[~2021-01-28 05:38] MED LIST changes: -IBUP100T9 PO
[2021-01-28] MEDS ORDERED: IBUP100T9 PO (12:00)
== END 2021-01-28 12:04 | disposition home or self-care (01) ==
LOC: PREOP 05:38
PROVIDERS: ATTEND Orthopaedic Surgery
DX: Z01.818 Encounter for other preprocedural examination (principal)

== ENCOUNTER 2021-01-30 09:28 | Day surgery (SDC) | payer OTHER ==
[2021-01-30] VITALS (12 sets, daily range): BP systolic 111–133; BP diastolic 58–79
[~2021-01-30] VITALS: Ht 175.3 cm; Wt 66.0 kg
[~2021-01-30 09:28] MED LIST changes: +IBUP100T9 PO
[2021-01-30] MEDS ORDERED: NEO/POLY/BAC (NEOSPORIN) OINT 15 GM TUBE ONE (09:35)
[2021-01-30] MEDS ORDERED: BUPIVACAINE 0.25% 30 ML (SENSORCAINE) VIAL ONE (09:35)
[2021-01-30] MEDS ORDERED: ceFAZolin INJECTION 1,000 MG in WATER (STERILE) FOR INJECTION 10 ML IV ONE (09:45)
[2021-01-30] MEDS ORDERED: LACTATED RINGERS 1,000 ML IV PRN (09:45)
[2021-01-30] MEDS ORDERED: fentaNYL INJ 100 MCG/2 ML AMP ONE (09:46)
[2021-01-30] MEDS ORDERED: LIDOCAINE PF 2% 5 ML (XYLOCAINE) VIAL ONE (09:46)
[2021-01-30] MEDS ORDERED: proPOfol 200 MG/20 ML (DIPRIVAN) VIAL IV ONE (09:46)
[2021-01-30] MEDS ORDERED: MIDAZOLAM 2 MG/2 ML (VERSED) VIAL ONE (09:46)
[2021-01-30] MEDS ORDERED: ONDANSETRON 4 MG/2 ML (SDV) Z0FRAN ONE (09:46)
[2021-01-30] MEDS ORDERED: SEVOFLURANE (ULTANE) 15 ML INHAL SOLN ONE (11:17)
--- NOTE | 2021-01-30 11:25 | Diagnostic Imaging Report ---
INDICATION: Left wrist fracture IMPRESSION: 22.8 seconds of fluoroscopy and 3 intraoperative digital images used in surgery by Dr. Dougherty during internal fixation of the distal radius with ventral plate and screws. Dictated by: Dictated on workstation # [id number]
[2021-01-30] MEDS ORDERED: ACHD5005 PO (11:28)
[2021-01-30] MEDS ORDERED: MEPERIDINE (DEMEROL) INJ 50 MG/ML IVP ONE (11:30)
[2021-01-30] MEDS ORDERED: PROMETHAZINE INJ 25 MG/ML (PHENERGAN) AMP IVP ONE (11:30)
[2021-01-30] MEDS ORDERED: morphine INJ 10 MG/ML 1ML (SYR OR VIAL) IVP ONE (11:30)
[2021-01-30] MEDS ORDERED: ONDANSETRON 4 MG/2 ML (SDV) Z0FRAN IVP PRN (11:30)
[2021-01-30] MEDS ORDERED: HYDROmorphone 2 MG/ML VIAL (DILAUDID) IV ONE (11:30)
--- NOTE | 2021-01-30 11:36 | Operative Report - Ortho ---
Operative Report Surgeon (s)/Actuarial Science Teacher (s) Surgeon CECILIA FRITZ MD Actuarial Science Teacher n/a Pre-Operative Diagnosis left distal radius fx Post-Operative Diagnosis same Operative Report Date of Procedure: Jan 30, 2021 Name of Procedure Performed: Open reduction and internal fixation of intraarticular left distal radius fracture Description & Findings After obtaining informed consent, the patient was taken to the operating room. General anesthesia was induced. Surgical timeout was taken. The left upper extremity was prepped and draped in the usual sterile fashion. Incision was made over the volar side of the wrist. Radial artery was identified and protected. Fascia was divided, retractors were placed, and the pronator was reflected. Fracture site was exposed and there was significant comminution in the metaphysis. Reduction maneuver was performed using traction, wrist flexion, and ulnar deviation. A [employer] distal radius plate was selected and position against the bone using C-arm. A nonlocking screw was placed in the slot of the plate. A nonlocking screw was then placed in the most distal row of the plate. Plate position and reduction were confirmed in the AP and lateral planes. 2 locking screws were placed in the distal portion of the plate. A locking screw was placed in the diaphyseal portion of the plate. The radial styloid screws were then placed distally. An additional diaphyseal locking screw was placed. Images were obtained in the AP, oblique, and lateral and demonstrated adequate reduction of the fracture including the intraarticular portion and appropriate position of the hardware. Final images were transferred to PACS. Wound was irrigated with normal saline. Subcutaneous layer was closed with 3-0 vicryl. Skin was closed with 4-0 nylon. Wound was injected locally with marcaine. Arm was dressed with xeroform, 4x4s, ABD, webril, volar splint, and HIRAL wrap. Patient tolerated the procedure well and was stable to the recovery room. Anesthesia Type General Estimated Blood Loss Less than 20 mL Specimen(s) collected/removed None CECILIA FRITZ MD Jan 30, 2021 11:36
[2021-01-30] MEDS ORDERED: morphine INJ 10 MG/ML 1ML (SYR OR VIAL) ONE (11:40)
--- NOTE | 2021-01-30 12:03 | Anesthesia-General Post-Op ---
General Patient Condition Mental Status/LOC: Same as Preop Cardiovascular: Satisfactory Nausea/Vomiting: Absent Respiratory: Satisfactory Pain: Controlled Complications: Absent Post Op Complications Complications None Follow Up Care/Instructions Patient Instructions None needed. Anesthesia/Patient Condition Patient Condition Patient is doing well, no complaints, stable vital signs, no apparent adverse anesthesia problems. No complications reported per nursing. CECILIA ADAME CRNA Jan 30, 2021 12:03
[2021-01-30] MEDS ORDERED: HYDROcodone/APAP 5 MG/325 MG (LORTAB) TAB PO ONE (12:45)
== END 2021-01-30 13:45 | disposition home or self-care (01) ==
LOC: SDC 09:28
PROVIDERS: ATTEND Orthopaedic Surgery
DX: S52.572A Other intraarticular fracture of lower end of left radius, initial encounter for closed fracture (principal); G62.9 Polyneuropathy, unspecified; Z79.2 Long term (current) use of antibiotics; Z79.1 Long term (current) use of non-steroidal anti-inflammatories (NSAID); W19.XXXA Unspecified fall, initial encounter; Z79.899 Other long term (current) drug therapy; Z79.891 Long term (current) use of opiate analgesic
CPT/HCPCS: 76000; 87081

== ENCOUNTER → 2021-02-12 | Outpatient (CLI) | payer OTHER | LOC: ORTHO 08:55 | PROVIDERS: ATTEND Orthopaedic Surgery | DX: S52.92XD Unspecified fracture of left forearm, subsequent encounter for closed fracture with routine healing (principal); X58.XXXD Exposure to other specified factors, subsequent encounter ==

== ENCOUNTER → 2021-03-05 | Outpatient (CLI) | payer OTHER ==
--- NOTE | 2021-03-05 13:29 | Diagnostic Imaging Report ---
INDICATION: Fracture, follow-up TECHNIQUE: 3 views of the left wrist CORRELATION STUDY: 01/25/2021 FINDINGS: Volar plate and screws have been placed transfixing the extremely comminuted distal radius fracture. Alignment appears to be improved and less impacted post fixation. Fracture lines are still well visualized with very little interval healing. There is also markedly comminuted impacted distal ulna fracture with intra-articular extension. Alignment relatively stable and near anatomic. Generalized bony demineralization present. Narrowing at the radiocarpal row. There is a faint transverse lucency through the mid scaphoid waist with subtle fractures not excluded. IMPRESSION: 1. Internal fixation of the comminuted intraarticular distal left radius fracture. 2. Comminuted, impacted relatively stable appearance of the distal ulna fractures. 3. Lucency at the mid scaphoid bone and a nondisplaced fracture is not excluded. 4. Prominent somewhat progressive severity bony demineralization of the left wrist particularly for the patient's age. Dictated by: Dictated on workstation # [id number]
== END ==
LOC: ORTHO 09:20
PROVIDERS: ATTEND Orthopaedic Surgery
DX: Z09 Encounter for follow-up examination after completed treatment for conditions other than malignant neoplasm (principal); S52.502D Unspecified fracture of the lower end of left radius, subsequent encounter for closed fracture with routine healing; S52.602D Unspecified fracture of lower end of left ulna, subsequent encounter for closed fracture with routine healing; X58.XXXD Exposure to other specified factors, subsequent encounter
CPT/HCPCS: 73110

== ENCOUNTER → 2021-03-23 | Outpatient (CLI) | payer OTHER ==
[~2021-03-23] MED LIST changes: +CYCL10TA25 PO; -CYCL10TA9 PO
--- NOTE | 2021-03-23 16:59 | Diagnostic Imaging Report ---
EXAMINATION: Digital mammogram bilateral screening with CAD. INDICATION: Screening. COMPARISON: This study was compared to the prior exams of 03/18/2020, 03/23/2018, and 03/21/2017. PERSONAL HISTORY: At this time, there are no current complaints. FINDINGS: The fibroglandular tissue in both breasts is heterogeneously dense. This does limit the sensitivity of this exam. On the craniocaudad view of the right breast in the midportion of the breast approximately 4 cm from the nipple, there is a 6 mm asymmetry. There may be a corresponding abnormality in the inferior portion of the breast on the MLO view. These findings could be secondary to superimposition of the fibroglandular tissue but they do not clearly resolve on the tomographic images. Therefore, I would recommend that a compression view of these areas be performed in both the MLO and CC projections for further study. A true lateral view of the right breast should also be performed. Ultrasound would be recommended as well. The left breast is unchanged. IMPRESSION: Additional mammographic views and ultrasound of the right breast would be recommended for further study. ACR BI-RADS Category 0: Incomplete. (Needs additional imaging evaluation). Result letter will be mailed to the patient. Note: At least 10% of breast cancer is not imaged by mammography. Dictated by: Dictated on workstation # [id number]
== END ==
LOC: RAD 09:09
PROVIDERS: ATTEND Obstetrics & Gynecology
DX: Z12.31 Encounter for screening mammogram for malignant neoplasm of breast (principal)
CPT/HCPCS: 77063; 77067

== ENCOUNTER → 2021-03-26 | Outpatient (CLI) | payer OTHER ==
--- NOTE | 2021-03-26 12:01 | Diagnostic Imaging Report ---
INDICATION: Left wrist injury. TIME OF EXAM: 10:12 a.m. COMPARISON: Correlation is made with prior radiographs from 03/05/2021. FINDINGS: Postop changes of comminuted intra-articular distal radius fracture is again noted. There is a volar plate and numerous screws transfixing the distal radius fractures. Hardware appears to be intact. Alignment is anatomic. Fracture lines do remain clearly visible. There are comminuted fractures of the distal ulna as well. There is some callus formation and sclerosis of the distal ulnar fractures, but fracture lines do remain partly visible. There is involvement of the ulnar styloid. Demineralization of the carpus and metacarpals is noted. Previously noted lucency in the mid scaphoid is not as well seen on today's study. No definite carpal bone fractures are identified. IMPRESSION: Distal radius and ulnar fractures, as described. Alignment is anatomic. Some healing has occurred, but fracture lines remain clearly visible. Dictated by: Dictated on workstation # [id number]
== END ==
LOC: ORTHO 09:57
PROVIDERS: ATTEND Orthopaedic Surgery
DX: S52.572A Other intraarticular fracture of lower end of left radius, initial encounter for closed fracture (principal); S52.692A Other fracture of lower end of left ulna, initial encounter for closed fracture; X58.XXXA Exposure to other specified factors, initial encounter
CPT/HCPCS: 73110

== ENCOUNTER → 2021-04-01 | Outpatient (CLI) | payer OTHER ==
--- NOTE | 2021-04-01 10:15 | Diagnostic Imaging Report ---
INDICATION: Right breast density. Patient presents for additional views. Correlation is made to screening study from 03/23/2021. Unilateral right 2-D and 3-D diagnostic mammography was performed. This includes spot compression CC and ML views as well as conventional 90 degree lateral views. Additional views demonstrated a discrete mass. Density noted in the right breast appears resolved and most likely represent superimposed tissue. There is no mass or suspicious microcalcifications. IMPRESSION: Additional views fail to demonstrate a discrete mass. The patient may return to routine annual screening mammography. BI-RADS Category 1 ACR BI-RADS Category 1: Negative. Result letter will be mailed to the patient. Note: At least 10% of breast cancer is not imaged by mammography. Dictated by: Dictated on workstation # [id number]
== END ==
LOC: RAD 09:15
PROVIDERS: ATTEND Obstetrics & Gynecology
DX: R92.2 Inconclusive mammogram (principal)
CPT/HCPCS: 77065; G0279

== ENCOUNTER 2021-04-23 08:06 | Outpatient (RCR) | payer OTHER | END 2021-04-24 | disposition home or self-care (01) | PROVIDERS: ATTEND Orthopaedic Surgery | DX: S52.502D Unspecified fracture of the lower end of left radius, subsequent encounter for closed fracture with routine healing (principal); S52.602D Unspecified fracture of lower end of left ulna, subsequent encounter for closed fracture with routine healing; X58.XXXD Exposure to other specified factors, subsequent encounter ==

== ENCOUNTER → 2021-04-23 | Outpatient (CLI) | payer OTHER ==
--- NOTE | 2021-04-23 10:37 | Diagnostic Imaging Report ---
Left wrist at 10:20. Indication: Followup fracture 3 views were obtained. As noted on the prior exam of 03/26/2021 there is an orthopedic plate and screw fixation device securing a subacute slightly displaced fracture of the distal radial metaphysis. The orthopedic hardware remains in good position. There has been some healing callus formation develop about the fractured radius since the prior study but the fracture line is still clearly evident. The slightly displaced healing fracture of the ulna seen previously is also again visualized and the fracture lines are less conspicuous than noted on the prior exam. The osseous structures are demineralized. Most likely this is secondary to disuse. There is no acute bony abnormality appreciated. The soft tissues are unremarkable. Impression: There continues to be further healing of the fractures, radius and ulna. There is no acute bony abnormality noted. The orthopedic hardware remains in good position. Dictated by: Dictated on workstation # [id number]
== END ==
LOC: ORTHO 10:03
PROVIDERS: ATTEND Orthopaedic Surgery
DX: Z09 Encounter for follow-up examination after completed treatment for conditions other than malignant neoplasm (principal); S52.92XD Unspecified fracture of left forearm, subsequent encounter for closed fracture with routine healing; S52.202D Unspecified fracture of shaft of left ulna, subsequent encounter for closed fracture with routine healing; X58.XXXD Exposure to other specified factors, subsequent encounter
CPT/HCPCS: 73110

== ENCOUNTER 2021-05-19 11:17 | Outpatient (RCR) | payer OTHER | END 2021-05-19 14:55 | disposition home or self-care (01) | PROVIDERS: ATTEND Orthopaedic Surgery | DX: Z09 Encounter for follow-up examination after completed treatment for conditions other than malignant neoplasm (principal); Z98.890 Other specified postprocedural states ==

== ENCOUNTER → 2021-06-02 | Outpatient (CLI) | payer OTHER ==
--- NOTE | 2021-06-02 10:56 | Diagnostic Imaging Report ---
INDICATION: Postop follow-up for radial and ulnar styloid fractures with ORIF. Comparison with 04/23/2021. FINDINGS: There has been continued bony bridging callus formation and remodeling of the distal radial and ulnar shaft fractures. The dorsal side plate and bone screws appear unchanged with no evidence of loosening. The radiocarpal joints in good alignment. Chronic nonunion of the ulnar styloid. IMPRESSION: Continued healing with good alignment of the distal radial and ulnar fractures. Dictated by: Dictated on workstation # [id number]
== END ==
LOC: ORTHO 09:22
PROVIDERS: ATTEND Orthopaedic Surgery
DX: S52.512D Displaced fracture of left radial styloid process, subsequent encounter for closed fracture with routine healing (principal); S52.612D Displaced fracture of left ulna styloid process, subsequent encounter for closed fracture with routine healing; X58.XXXD Exposure to other specified factors, subsequent encounter
CPT/HCPCS: 73110; G0463; 99212

== ENCOUNTER → 2021-06-30 | Outpatient (CLI) | payer OTHER | LOC: ORTHO 08:15 | PROVIDERS: ATTEND Orthopaedic Surgery | DX: Z47.89 Encounter for other orthopedic aftercare (principal); Z98.890 Other specified postprocedural states | CPT/HCPCS: 99212 ==

== ENCOUNTER 2022-01-07 05:37 | Outpatient (CLI) | payer OTHER ==
[~2022-01-07] VITALS: Ht 172.7 cm; Wt 67.3 kg
== END 2022-01-07 15:08 | disposition home or self-care (01) ==
LOC: PREOP 05:37
PROVIDERS: ATTEND Internal Medicine
DX: Z01.818 Encounter for other preprocedural examination (principal)

== ENCOUNTER 2022-01-15 09:03 | Day surgery (SDC) | payer OTHER ==
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
[~2022-01-15] VITALS: Ht 173 cm; Wt 67.3 kg
[2022-01-15] MEDS ORDERED: LACTATED RINGERS 1,000 ML IV STA (09:08)
[2022-01-15 09:25] VITALS: BP 128/78
--- NOTE | 2022-01-15 09:25 | Pre-Op Note & Conscious Sedat ---
Pre-Operative Progress Note Date H&P Reviewed: Jan 15, 2022 Time H&P Reviewed: 09:25 History & Physical: H&P Reviewed, Patient Examed, No changes noted Pre-Op Diagnosis: screening Conscious Sedation Pre-Proced ASA Score 2 For ASA 3 and 4: Consider anesthesia and medical clearance. Also, for patients with a history of failed moderate sedation consider anesthesia. Airway Lungs Heart ASA score ASA 1: a normal healthy patient ASA 2: a patient with a mild systemic disease (mid diabetes, controlled hypertension, obesity ASA 3: a patient with a severe systemic disease that limits activity (angina, COPD, prior Myocardial infarction) ASA 4: a patient with an incapacitating disease that is a constant threat to life (CHF, renal failure) ASA 5: a moribund patient not expected to survive 24 hrs. (ruptured aneurysm) ASA 6: a declared brain- patient whose organs are being harvested. For emergent operations, add the letter E after the classification Mallampati Classification Grade 1 Sedation Plan Analgesia, Amnesia, Plan communicated to team members, Discussed options with patient/fam, Discussed risks with patient/fam The patient is an appropriate candidate to undergo the planned procedure, sedation, and anesthesia. The patient immediately re-assessed prior to indication. SUE ROBLES MD Jan 15, 2022 09:25
[2022-01-15] MEDS ORDERED: MIDAZOLAM 2 MG/2 ML (VERSED) VIAL ONE (09:54)
[2022-01-15] MEDS ORDERED: PROPOFOL INJECTION 50 ML IV ONE (09:54)
[2022-01-15 10:20] VITALS: BP 90/50
--- NOTE | 2022-01-15 10:20 | Progress Note-Post Operative ---
Post-Procedure Note Physician (s)/Noodle Maker (s) Physician SUE ROBLES MD Pre-Procedure Diagnosis Pre-Procedure Diagnosis: screening Post-Procedure Diagnosis Post-operative diagnosis: Normal colonoscopy SUE ROBLES MD Jan 15, 2022 10:20
[2022-01-15 10:25] VITALS: BP 98/57
[2022-01-15 10:45] VITALS: BP 105/69
--- NOTE | 2022-01-15 12:41 | Anesthesia-General Post-Op ---
MAC Patient Condition Mental Status/LOC: Same as Preop Cardiovascular: Satisfactory Nausea/Vomiting: Absent Respiratory: Satisfactory Pain: Controlled Complications: Absent Post Op Complications Complications None Follow Up Care/Instructions Patient Instructions None needed. Anesthesiology Discharge Order Discharge Order Patient is doing well, no complaints, stable vital signs, no apparent adverse anesthesia problems. No complications reported per nursing. ROBERT ALEMAN CRNA Jan 15, 2022 12:41
--- NOTE | 2022-01-15 15:50 | OPERATIVE REPORT ---
DATE OF SERVICE: COLONOSCOPY SUMMARY INDICATION FOR THE PROCEDURE: Screening. DESCRIPTION OF PROCEDURE: The patient was placed in the left lateral decubitus position. Prior to undergoing colonoscopy, a digital rectal evaluation was performed. Anal sphincter tone was normal and the perianal reflex was intact. No abnormalities were noted on digital inspection of the anal canal or distal rectal vault. The colonoscope was then inserted into the rectum and under direct visualization advanced to the cecum. The cecum was identified by identification of the ileocecal valve and cecal strap. Photographic hypertension was obtained. Quality of prep was good. Careful inspection was made on withdrawal. FINDINGS: There was no evidence for internal or external hemorrhoids. The rectum, sigmoid colon, descending colon, splenic flexure, transverse colon, hepatic flexure, ascending colon, and cecum were normal. ASSESSMENT: Normal colonoscopy to the cecum under good prep conditions. Advocate consideration for repeat screening colonoscopy in 10 years. Job ID: [id number] DocumentID: [id number] Dictated Date: 01/15/2022 10:18:46 Unpaid Intern Date: 01/15/2022 15:49:39 Dictated By: SUE ROBLES MD
== END 2022-01-15 11:10 | disposition home or self-care (01) ==
LOC: ENDO 09:03
PROVIDERS: ATTEND Internal Medicine
DX: Z12.11 Encounter for screening for malignant neoplasm of colon (principal); Z80.0 Family history of malignant neoplasm of digestive organs

== ENCOUNTER → 2022-03-31 | Outpatient (CLI) | payer OTHER ==
--- NOTE | 2022-03-31 11:27 | Diagnostic Imaging Report ---
Indication: Routine screening. Comparison is made with prior mammogram 03/23/2021 and 03/18/2020. 2-D and 3-D bilateral screening mammography was performed with CAD. CAD is utilized. The current study was also evaluated with a Computer Aided Detection (CAD) system. Both breasts are heterogeneously dense, limiting the sensitivity of mammography. No mass or malignant-appearing microcalcifications are seen. Axillae are unremarkable. IMPRESSION: BI-RADS Category 1 No mammographic features suspicious for malignancy are identified. ACR BI-RADS Category 1: Negative. Result letter will be mailed to the patient. Note: At least 10% of breast cancer is not imaged by mammography. Dictated by: Dictated on workstation # [id number]
== END ==
LOC: RAD 10:03
PROVIDERS: ATTEND Nurse Practitioner Women's Health
DX: Z12.31 Encounter for screening mammogram for malignant neoplasm of breast (principal)
CPT/HCPCS: 77063; 77067